=== PATIENT | male | born 1990 | race Caucasian/White ===

== ENCOUNTER 2018-02-21 13:34 | Emergency (ER) | END 2018-02-21 18:24 | disposition home or self-care (01) ==

== ENCOUNTER 2018-10-25 10:51 | Emergency (ER) | payer MEDICAID ==
[~2018-10-25] VITALS: Ht 170.2 cm; Wt 85.6 kg
[~2018-10-25 10:51] MED LIST: ACET1TAB40 PO; GENT5DRO28 RIGHT EYE; IBUP-1542 PO
[2018-10-25 10:54] VITALS: BP 139/78; PULSE 62; RESP 18; Ht 170.2 cm; Wt 85.6 kg
[2018-10-25] MEDS ORDERED: KETOROLAC 60 MG INJ IM STA (11:24)
[2018-10-25] MEDS ORDERED: IBUP-1542 PO (11:53)
--- NOTE | 2018-10-25 12:38 | ERD ---
ER Documentation Chief Complaint Chief Complaint right leg pain x 1 week HPI 28-year-old male patient with no significant past medical history presents to the ED stating that about 1 week ago, he was lifting something that was 50 pounds, and started to experience a stabbing right leg pain deriving from his right buttocks, 2 days later. Reports that he has been taking Motrin without any relief. States that he was using his back to lift the object. Patient rates his pain a 10 out of 10. Denies any fever, chills, chest pain, shortness of breath, saddle anesthesia, urine or bowel incontinence, flank pain, dysuria, urgency, frequency. Denies any rectal pain, bloody stools, melena. ROS All systems reviewed and are negative except as per history of present illness. Medications Home Meds Active Scripts Ibuprofen* (Motrin*) 600 Mg Tab, 600 MG PO Q6, #30 TAB Prov:SHAGGY VERNON PA-C 10/25/18 Ibuprofen* (Motrin*) 600 Mg Tab, 600 MG PO Q8 for 5 Days, #15 TAB Prov:WENDIE ORTIZ MD 02/21/18 Acetaminophen-Codeine* (Acetaminophen-Cod #3*) 300-30 Mg Tab, 1 TAB PO Q4H PRN for PAIN, #10 TAB Prov:BROOKLYN CLINE MD 06/16/15 Ibuprofen* (Motrin*) 600 Mg Tab, 600 MG PO Q6, #20 TAB Prov:BROOKLYN CLINE MD 06/16/15 Gentamicin Sulfate* (Gentamicin Sulfate* Ophth) 0.3% - 5 Ml Drops, 1 DROP RIGHT EYE Q4 for 7 Days, EA Prov:BROOKLYN CLINE MD 06/16/15 Allergies Allergies: Coded Allergies: No Known Allergy (Unverified , 06/16/15) PMhx/Soc Medical and Surgical Hx: pt denies Medical Hx, pt denies Surgical Hx Hx Alcohol Use: Yes (social) Hx Substance Use: No Hx Tobacco Use: No Smoking Status: Never smoker Physical Exam Vitals Vital Signs Date Temp Pulse Resp B/P (MAP) Pulse Ox O2 O2 Flow FiO2 Time Delivery Rate 10/25/18 98.0 62 18 139/78 97 10:54 (98) Physical Exam Const: [id number], well-nourished. In no acute distress. Head: Atraumatic, normocephalic Eyes: Normal Conjunctiva without injection. No purulent discharge. ENT: Normal external ear, nose. Moist oropharynx without tonsillar exudates. Non-erythematous pharynx. Uvula midline. No drooling. No trismus. Neck: No cervical midline tenderness. Full range of motion. No meningismus. No cervical lymphadenopathy. No JVD. Resp: Clear to auscultation bilaterally. No wheezing, rhonchi, rales, or crackles. No accessory muscle use. No retractions. Cardio: Regular rate and rhythm. No murmurs, rubs or gallops. Abd: Soft, nontender, non distended. Normal bowel sounds. No palpable masses. No rebound tenderness. No guarding. Negative McBurney's point. Negative psoas sign. Negative obturator sign. Skin: No petechiae or rashes Back: No midline tenderness. No CVA tenderness. Tenderness palpation of the right buttocks. Positive straight leg test. No fluctuance or induration surrounding the perianal area or erythema. Ext: No cyanosis, or edema. Neur: Awake and alert. Normal gait. Normal coordination. Psych: Normal Mood and Affect Results 24 hrs Current Medications Medications Dose Sig/Kishore Start Time Status Last (Trade) Ordered Route PRN Stop Time Admin Dose Reason Admin Ketorolac 60 mg ONCE STAT 10/25/18 DC 10/25/18 Tromethamine IM 11:24 11:32 (Toradol) 10/25/18 11:25 Procedures/MDM 28-year-old male patient with no significant past medical history presents to ED complaining of right buttocks pain radiating down his right leg. Patient is afebrile and nontoxic-appearing. Patient likely has sciatica. He was treated here in the ED with 60 mg IM Toradol with improvement of his pain. There is no fluctuance or induration or erythema of the perianal area, there is low suspicion for perianal abscess, perirectal abscess. Patient is ambulating here in the ED without difficulty. Denies saddle anesthesia, numbness or tingling, urine or bowel incontinence, weakness. Low suspicion for cauda equina syndrome, cord compression, nephrolithiasis, aortic aneurysm, aortic dissection, epidural abscess, spinal hematoma, malignancy, pyelonephritis, or other emergent conditions. Diagnosis: Sciatica Discharge medications: Ibuprofen Follow up with primary care physician in 1-2 days for physical therapy. Instructed patient to return to the ED sooner for any worsening symptoms. Patient's questions were answered. Patient is hemodynamically stable. Patient understood and agreed with discharge plan. Patient discharged stable. Disclaimer: Inadvertent spelling and grammatical errors are likely due to EHR/dictation software use and do not reflect on the overall quality of patient care. Also, please note that the electronic time recorded on this note does not necessarily reflect the actual time of the patient encounter. Departure Diagnosis: Primary Impression: Sciatica Laterality: right Qualified Codes: M54.31 - Sciatica, right side Condition: Stable Patient Instructions: Back Pain W/ Sciatica Referrals: [facility] YOU HAVE RECEIVED A MEDICAL SCREENING EXAM AND THE RESULTS INDICATE THAT YOU DO NOT HAVE A CONDITION THAT REQUIRES URGENT TREATMENT IN THE EMERGENCY DEPARTMENT. FURTHER EVALUATION AND TREATMENT OF YOUR CONDITION CAN WAIT UNTIL YOU ARE SEEN IN YOUR DOCTORS OFFICE WITHIN THE NEXT 1-2 DAYS. IT IS YOUR RESPONSIBILITY TO MAKE AN APPOINTMENT FOR FOLOW-UP CARE. IF YOU HAVE A PRIMARY DOCTOR --you should call your primary doctor and schedule an appointment IF YOU DO NOT HAVE A PRIMARY DOCTOR YOU CAN CALL OUR PHYSICIAN REFERRAL HOTLINE AT IF YOU CAN NOT AFFORD TO SEE A PHYSICIAN YOU CAN CHOSE FROM THE FOLLOWING [facility] [address] [facility]. [facility] [address] [facility] [facility] [address] [facility]. [facility] [address] [facility] [address] [facility]. [facility]. [address] [facility] [place]. [facility] YOU HAVE RECEIVED A MEDICAL SCREENING EXAM AND THE RESULTS INDICATE THAT YOU DO NOT HAVE A CONDITION THAT REQUIRES URGENT TREATMENT IN THE EMERGENCY DEPARTMENT. FURTHER EVALUATION AND TREATMENT OF YOUR CONDITION CAN WAIT UNTIL YOU ARE SEEN IN YOUR DOCTORS OFFICE WITHIN THE NEXT 1-2 DAYS. IT IS YOUR RESPONSIBILITY TO MAKE AN APPOINTMENT FOR FOLOW-UP CARE. IF YOU HAVE A PRIMARY DOCTOR --you should call your primary doctor and schedule and appointment IF YOU DO NOT HAVE A PRIMARY DOCTOR YOU CAN CALL OUR PHYSICIAN REFERRAL HOTLINE AT . IF YOU CAN NOT AFFORD TO SEE A PHYSICIAN YOU CAN CHOSE FROM THE FOLLOWING COUNTS INCLUDE 234 BEDS AT THE [facility] INSTITUTIONS: [facility] [address] [place] [address] [facility] [address] [place], [place] [id number] [place] [address] [address] [place] [address] [facility] U[facility]ENT [facility]/SPECIALTIES Additional Instructions: Llame al doctor MAANA y shane nitin ANTHONY PARA DENTRO DE 2-3 GONZALES.Dgale a la secretaria que nosotros le instruimos hacer esta anthony.Avise o llame si mariano condicin se empeora antes de la anthony. Regresa aqui si peor o no mejor. SHAGGY VERNON PA-C Oct 25, 2018 12:38
== END 2018-10-25 12:04 | disposition home or self-care (01) ==
LOC: FTE 10:51
DX: M54.31 Sciatica, right side (principal)
CPT/HCPCS: 96372; J1885; Z7502

== ENCOUNTER 2019-08-30 10:34 | Emergency (ER) | payer SELFPAY ==
[~2019-08-30] VITALS: Wt 89.0 kg
[2019-08-30 10:37] VITALS: BP 136/87; PULSE 81; RESP 18
== END 2019-08-30 13:10 | disposition home or self-care (01) ==
LOC: FTE 10:34
DX: J06.9 Acute upper respiratory infection, unspecified (principal)
CPT/HCPCS: 71045; 87400; Z7502